=== PATIENT | female | born 1990 | race Caucasian/White ===

== ENCOUNTER 2020-11-08 11:04 | Emergency (ER) | payer BC, SELFPAY ==
[2020-11-08 11:06] VITALS: BP 141/100; PULSE 90; RESP 20; TEMP 36.7; O2SAT 99
--- NOTE | 2020-11-08 11:09 | ECG_ITS ---
Measurements Intervals [place] Rate: 84 P: 54 DE: 142 QRS: 36 QRSD: 89 T: 31 QT: 323 QTc: 382 Interpretive Statements SINUS RHYTHM WITH MARKED SINUS ARRHYTHMIA LOW QRS VOLTAGE IN PRECORDIAL LEADS NONSPECIFIC T-WAVE ABNORMALITY- INFERIOR LEADS BORDERLINE ECG Electronically Signed On 11-08-2020 17:41:49 CDT by Colt Gay D.O.
[2020-11-08 11:22] LABS: Basophils Absolute Auto 0.1 K/mm3 (0.0-0.1); Basophils Percent Auto 0.5 % (0.2-1.2); Eosinophils Absolute Auto 0.2 K/mm3 (0-0.3); Eosinophils Percent Auto 1.4 % (0-4.4); Hematocrit 43.9 % (37.0-47.0); Hemoglobin 14.2 g/dL (12.0-15.0); Immature Granulocyte Absolute 0.05 K/mm3 (0.00-0.031); Immature Granulocyte Percent A 0.5 % (0-0.5); Lymphocytes Absolute Auto 3.04 K/mm3 (0.9-3.2); Lymphocytes Percent Auto 27.5 % (18.3-44.2); Mean Corpuscular HGB Conc 32.3 g/dl (32-36); Mean Corpuscular Hemoglobin 27.4 pg (26-34); Mean Corpuscular Volume 84.6 fl (80-100); Mean Platelet Volume 8.9 fl (7.4-10.4); Monocytes Absolute Auto 0.7 K/mm3 (0.1-0.6); Monocytes Percent Auto 6.2 % (2.6-8.5); Neutrophils Absolute Auto 7.1 K/mm3 (1.3-6.7); Neutrophils Percent Auto 63.9 % (45.5-73.1); Platelet Count Result 403 k/mm3 (150-375); Red Blood Count 5.19 M/mm3 (4.2-5.4); Red Cell Distribution Width 12.9 % (11.5-14.5); White Blood Count 11.1 K/mm3 (4.5-10.0)
[2020-11-08 11:32] LABS: Alanine Aminotransferase 22 U/L (4-35); Albumin Level 4.4 g/dL (3.5-5.1); Alkaline Phosphatase 56 U/L (38-126); Anion Gap 6 mmol/L (8-16); Aspartate Amino Transferase 23 U/L (14-36); Bilirubin,Total 0.2 mg/dL (0.2-1.3); Blood Urea Nitrogen 12 mg/dL (7-17); Calcium 9.7 mg/dL (8.4-10.2); Carbon Dioxide 29 mmol/L (22-30); Chloride 105 mmol/L (98-107); Estimated CRCL calculation 108 ml/min; Estimated Glomerular Filt Rate > 60; Glucose 99 mg/dL (65-105); Sodium 140 mmol/L (137-145)
[2020-11-08 11:33] LABS: Add Urine Microscopic? YES; Appearance Urine Cloudy (Clear); Bacteria Urine 3+ /hpf; Bilirubin Urine Negative (Negative); Blood Urine Negative (Negative); Color Urine Yellow (Yellow); Glucose Urine UA Negative (Negative); Ketones Urine Negative (Negative); Leukocyte Esterase Ur 3+ LEU/UL (Negative); Mucus Urine Rare /lpf; Nitrate Urine Negative (Negative); Protein Urine Negative (Negative); Specific Grav Ur 1.011 (1.001-1.035); Squamous Epithelial Cell Urine Many /hpf (Few); Urobilinogen Urine Negative mg/dL (<2.0)
[2020-11-08 11:52] VITALS: BP 129/99; PULSE 92; RESP 25; O2SAT 99
[2020-11-08 12:01] VITALS: BP 131/98; PULSE 92; RESP 15; O2SAT 95
[2020-11-08 12:30] LABS: Alveolar/Arterial O2 Gradient 19.9 mmHg; Base Excess ABG 0.8 mEq/l (+/-2.0); Device ROOM AIR; Fractional Inspired Oxygen 21 %; HCO3 ABG 24.7 mEq/l (22.0-26.0); Oxygen Saturation ABG 96.8 % (95.0-100.0); Oxyhemoglobin 93.8 % THb (90.0-100.0); PCO2 ABG 37.4 mmHg (35.0-45.0); PO2 FiO2 Ratio Arterial Blood 4.05 %; Site Drawn LEFT BRACHIAL; Total Hemoglobin 14.4 g/dL (12.0-18.0); pH ABG 7.438 (7.350-7.450)
[2020-11-08 12:46] VITALS: BP 125/107; PULSE 93; RESP 21; O2SAT 90
--- NOTE | 2020-11-08 13:01 | ED.GENADULT ---
HPI - General Adult General Chief complaint: Altered Mental Status Stated complaint: sent from urgent care with dizziness Time Seen by Provider: 11/08/20 11:42 Source: patient Mode of arrival: ambulatory Limitations: no limitations History of Present Illness HPI narrative: Patient is a 30 years old white female who presented to the ED with dizziness, in the form of a spinning started within the last 24 hours, associated with nausea. And intermittent poor concentration and thinking. Patient reported had similar symptoms in the past secondary to vertigo but did not last more than few minutes or hours. This 1 is longest 1. Patient denies any fever, chills, vomiting, chest pain, shortness of breath, back pain or abdominal pain. History of anxiety, PTSD, Related Data Home Medications Medication Instructions Recorded Confirmed levothyroxine 50 mcg PO DAILY 11/08/20 11/08/20 Allergies Allergy/AdvReac Type Severity Reaction Status Date / Time ciprofloxacin [From Cipro] Allergy Hives Verified 11/08/20 11:10 Review of Systems Review of Systems: Narrative: CONSTITUTIONAL: Denies fever, chills, or sweats. EYES: Denies visual changes, redness, or discharge. ENT: Denies rhinorrhea, congestion, sore throat, or otalgia. CARDIOVASCULAR: Denies chest pain, palpitations, or edema. RESPIRATORY: Denies cough or dyspnea. GASTROINTESTINAL: Denies abdominal pain, nausea, vomiting, or diarrhea. GENITOURINARY: Denies dysuria or hematuria. SKIN: Denies rash or itching. MUSCULOSKELETAL: Denies back pain, joint pain, or myalgia. NEUROLOGIC: Denies headache, numbness, or weakness. PSYCHIATRIC: Denies anxiety or depression. PMFSH Social History Social History Gender identity (if verbalized by the patient): Female Exam Narrative: Exam Narrative: General appearance: Well-developed, well-nourished Skin: Normal color Head: Normocephalic, nontraumatic Eyes: Clear conjunctiva ENT: Oropharynx normal, ears normal, nose normal, right ear exam showed tube in place Neck: Supple, nontender Chest and respiratory: Airway patent, no respiratory distress, no accessory muscle use Heart: Regular rate/rhythm Abdomen: Soft, nontender, no organomegaly, quiet bowel sounds Vascular: Normal peripheral pulses, normal capillary refill. Musculoskeletal: Normal range of motion, nontender back Neurologic: Alert and oriented ?3, [employer] is normal as tested, no gross motor deficit Course Course Emergency Course: Resolved Reevaluation(s) Reevaluation #1: Patient feeling okay, declined to get CAT scan of the head and is telling me that she well go to her family physician to get it Date: 11/08/20 Time: 13:23 Vital Signs Vital signs: Vital Signs Temperature 36.7 C 11/08/20 11:06 Pulse Rate 90 11/08/20 11:06 Respiratory Rate 20 11/08/20 11:06 Blood Pressure 141/100 H 11/08/20 11:06 Pulse Oximetry 99 11/08/20 11:06 Temperature 36.7 C 11/08/20 11:06 Pulse Rate 92 11/08/20 11:52 Respiratory Rate 25 H 11/08/20 11:52 Blood Pressure 129/99 H 11/08/20 11:52 Pulse Oximetry 99 11/08/20 11:52 Medical Decision Making MDM Narrative Medical decision making narrative: Benign positional vertigo is my concern. Labs, CT head, UA ordered. Further plan to follow Differential Diagnosis Differential Diagnosis: Benign positional vertigo, electrolyte imbalance, urinary tract infection, intracranial abnormality. Vital Signs Vital Signs: Vital Signs Temperature 36.7 C 11/08/20 11:06 Pulse Rate 90 11/08/20 11:06 Respiratory Rate 20 11/08/20 11:06 Blood Pressure 141/100 H 11/08/20 11:06 Pulse Oximetry 99
--- NOTE | 2020-11-08 13:10 | PC.NURSE ---
PT DECLINES CT SCAN. STATES SHE WILL FOLLOW UP WITH PCP FOR FURTHER TESTING. ALSO REFUSING IV. ZOFRAN ORDER CHANGED VORB FROM IV TO PO. PT ALSO GOT OUT OF BED AND TOOK OFF MONITORING EQUIPMENT. CURRENTLY SITTING IN CHAIR.
[2020-11-08] MEDS: ONDANSETRON HCL ODT 4 MG TABLET PO (13:17)
[2020-11-08] MEDS: MECLIZINE HCL 25 MG TABLET PO (13:17)
[2020-11-08] MEDS: NITROFURANTOIN MONOHYD MACROCR 100 MG CAP PO (13:18)
[2020-11-08 13:46] VITALS: BP 121/84; PULSE 89; RESP 17; O2SAT 98
== END 2020-11-08 13:50 | disposition home or self-care (01) ==
PROVIDERS: Emergency Provider Emergency Medicine; PCP Family Medicine
DX: R42 Dizziness and giddiness (principal); N39.0 Urinary tract infection, site not specified; R94.31 Abnormal electrocardiogram [ECG] [EKG]
CPT/HCPCS: 36415; 36600; 80053; 81001; 81025; 82805; 84443; 85025; 87077; 87086; 87088; 93005; 96374; 99284; A9270

== ENCOUNTER 2023-07-14 12:15 | Emergency (ER) | payer OTHER, SELFPAY ==
[2023-07-14 12:23] VITALS: BP 121/86; PULSE 81; RESP 16; TEMP 36.8; O2SAT 97
--- NOTE | 2023-07-14 12:23 | ED.URI ---
HPI - URI/Sore Throat General Chief Complaint: Upper Respiratory Infection Stated Complaint: Cough Source: patient, RN notes reviewed and old records reviewed Mode of arrival: ambulatory Limitations: no limitations History of Present Illness HPI Narrative: 33-year-old female presents to [facility] with complaint of productive cough, congestion this started approximately 2 weeks ago. Patient states nasal discharge and phlegm yellow/green. Patient taking [id number] medications with no relief. Patient denies dizziness, weakness, chest pain, shortness of breath. MD elicited complaint: cough and nasal congestion Onset (ago): week(s) (2) Related Data Allergies Allergy/AdvReac Type Severity Reaction Status Date / Time ciprofloxacin [From Cipro] Allergy Hives Verified 07/14/23 12:21 Review of Systems Constitutional: Constitutional: Reports no additional constitutional complaints, Denies body ache(s), Denies chills, Denies fatigue, Denies fever(s) and Denies headache(s) Eyes: Eyes: Reports no additional eye complaints and Denies blurry vision ENT: Reports system reviewed and no additional complaints, except as documented, Denies vertigo, Denies dizziness, Denies ear discharge, Denies otalgia, Denies facial pain, Denies headache(s), Reports nasal congestion, Reports nasal discharge, Reports sinus pain, Reports sinus pressure and Denies sore throat Cardiovascular: Cardiovascular: Reports no additional cardiovascular complaints, Denies chest pain, Denies chest pain at rest, Denies rapid heart rate and Denies dyspnea Respiratory: Respiratory: Reports no additional respiratory complaints, Reports chest congestion, Reports cough, Denies pain on inspiration, Denies pain with cough and Denies dyspnea Gastrointestinal: Gastrointestinal: Denies abdominal pain, Denies diarrhea, Denies nausea and Denies vomiting Integumentary/Breasts: Skin/Breast: Denies rash Neurologic: Reports system reviewed and no additional complaints, except as documented, Denies vertigo, Denies dizziness and Denies headache(s) Endocrine: Endocrine: Denies fatigue PMFSH Past Medical History Medical History Anxiety Depression Eustachian tube disorder Ganglion cyst of dorsum of left wrist removed Aug 2020 GERD (gastroesophageal reflux disease) Hypothyroid Pelvic floor dysfunction in female PTSD (post-traumatic stress disorder) Seasonal allergies Surgical History Surgical History [place] teeth extracted Family History Family History Father Diabetes mellitus Hypertension Hx of aortic aneurysm PFO with atrial septal aneurysm Cerebrovascular accident Mother Hypothyroid Sibling Depression Anxiety Grandparent Ovarian cancer Grandparent Skin cancer Diabetes mellitus Cerebrovascular accident Other Family hx of alcoholism Social History Social History Smoking packs per day: 0.5 Smoking cigarettes per day: 10.0 Years smoked: 14 Smoking pack-years: 7.00 Smoking status: Current every day smoker Tobacco type: cigarettes Alcohol intake: never Substance use: current Substance use type: marijuana Other substance usage details: smokes marijuana and consumes edibles Lack of Transportation: No Lack of Food: Never True Current Housing: I Have Housing Concerned About Future Housing: No Difficulty Paying Gas/Electric Bills: No Difficulty Paying for Meds: No Currently Unemployed: No Education: Associate Degree Difficulty w/ Childcare or Family Care: No Gender identity (if verbalized by the patient): Female Comments At the time of my signature, I reviewed and agree with the nursing past medical, surgical, social, and family history. There is no relevant family history pert
== END 2023-07-14 12:35 | disposition home or self-care (01) ==
PROVIDERS: Emergency Provider Registered Nurse; PCP Family Medicine
DX: J20.9 Acute bronchitis, unspecified (principal); E03.9 Hypothyroidism, unspecified; F17.210 Nicotine dependence, cigarettes, uncomplicated
CPT/HCPCS: 99213; G0463

== ENCOUNTER 2024-12-19 12:23 | Emergency (ER) | payer BC, SELFPAY ==
[2024-12-19 12:35] VITALS: BP 119/84; PULSE 76; RESP 16; TEMP 37.2; O2SAT 99
--- NOTE | 2024-12-19 12:55 | ED.EAR ---
HPI - Ear Problem General Chief complaint: Ear Stated complaint: EARACHE/COUGH Time Seen by Provider: 12/19/24 12:45 Source: patient and RN notes reviewed Mode of arrival: ambulatory Limitations: no limitations History of Present Illness HPI Narrative: 34-year-old female presents [facility] complaining of right ear pain and cough for 1 week. Patient reported she started with upper respiratory symptoms including cough, congestion, ear pain over the last week. Patient has had most of her symptoms have resolved except she continues to have pain in her right ear and noticed discharge coming from her ear. Patient has a history of frequent ear infections has had ear tubes in the past. Patient says her cough is dry nonproductive in worse when laying flat at night. Patient denies any fevers, body aches, chills, chest pain, shortness of breath, sore throat, dizziness, tinnitus, hearing problems, or any other symptoms. Related Data Allergies Allergy/AdvReac Type Severity Reaction Status Date / Time ciprofloxacin (From Cipro) Allergy Hives Verified 12/19/24 12:37 Review of Systems Review of Systems: CONSTITUTIONAL: Denies fever, chills, body aches, or sweats. EYES: Denies visual changes, redness, or discharge. ENT: Positive for congestion and otalgia. Negative for sore throat, tinnitus, hearing problems and rhinorrhea. CARDIOVASCULAR: Denies chest pain, palpitations, or edema. RESPIRATORY: Positive for cough. Negative for dyspnea. GASTROINTESTINAL: Denies abdominal pain, nausea, vomiting, or diarrhea. GENITOURINARY: Denies dysuria or hematuria. SKIN: Denies rash or itching. MUSCULOSKELETAL: Denies back pain, joint pain, or myalgia. NEUROLOGIC: Denies headache, numbness, or weakness. PSYCHIATRIC: Denies anxiety or depression. All other systems reviewed are negative, except as documented in HPI. [facility], [facility] Past Medical History Medical History Eustachian tube disorder Pelvic floor dysfunction in female Ganglion cyst of dorsum of left wrist removed Aug 2020 PTSD (post-traumatic stress disorder) Hypothyroid GERD (gastroesophageal reflux disease) Depression Anxiety Seasonal allergies Surgical History Surgical History [place] teeth extracted Family History Family History Father Diabetes mellitus Hypertension Hx of aortic aneurysm PFO with atrial septal aneurysm Cerebrovascular accident Mother Hypothyroid Sibling Depression Anxiety Grandparent Ovarian cancer Grandparent Skin cancer Diabetes mellitus Cerebrovascular accident Other Family hx of alcoholism Social History Social History Smoking packs per day: 0.5 Smoking cigarettes per day: 10.0 Years smoked: 14 Smoking pack-years: 7.00 Smoking status: Current every day smoker Tobacco type: cigarettes Alcohol intake: never Substance use: current Substance use type: marijuana Other substance usage details: smokes marijuana and consumes edibles Do You Feel Safe in your Home?: Yes Lack of Transportation: No Lack of Food: Never True Current Housing: I Have Housing Concerned About Future Housing: No Difficulty Paying Gas/Electric Bills: No Difficulty Paying for Meds: No Currently Unemployed: No Education: Associate Degree Difficulty w/ Childcare or Family Care: No Living arrangements: with family Additional living arrangements comments: Occupation/Education: occupation Additional occupation/education comments: [employer] Gender identity (if verbalized by the patient): Female Sexual Orientation (if Verbalized by the Patient): Straight or Heterosexual Comments At the time of my signature, I reviewed and agree with the nursing past medical, surgical, social, and family history. There is no relevant family history pertinent to the patient complaint. Exam Narrative: GENERAL: This is a well-nourished, well-developed adult, in no apparent distress. They are non ill-appearing, nontoxic appearing. HEAD: normocephalic, atraumatic. EYES: Sclera clear/white. Vision is grossly intact. Conjunctiva normal bilaterally. Extraocular movements intact. EARS: External ears normal, auditory canals clear and without drainage, left TM without erythema or perforation. Right TM is erythematous and bulging with suppuration. Right TM is intact. Hearing grossly intact. NOSE: External nose normal with no obvious nasal discharge, nasal turbinates erythematous, no rhinorrhea or exit a. THROAT: Mucous membranes moist, posterior pharynx without redness or swelling, no exudate. Uvula is midline. Postnasal drip present. NECK: Neck supple, non-tender without lymphadenopathy, masses or thyromegaly. CARDIOVASCULAR: Regular rate and rhythm without murmurs, gallops, or rubs. RESPIRATORY: Clear to auscultation. Breath sounds equal bilaterally. No wheezes, rales, or rhonchi. Respiratory rate normal, respiratory effort nonlabored, no respiratory distress SKIN: warm, Dry, intact with no suspicious lesions or rash, good texture and turgor. NEURO: awake, alert, and oriented to person, place and time. There were no obvious focal neurologic abnormalities. EXTREMITIES: No joint tenderness, effusion, or edema noted. BACK: Nontender without deformity. Course Course Emergency Course: Portions of this record may have been created with voice recognition software Level of Care: Express Care Visit Vital Signs Vital signs: Vital Signs Temperature 98.9 F 12/19/24 12:35 Pulse Rate 76 12/19/24 12:35 Respiratory Rate 16 12/19/24 12:35 Blood Pressure 119/84 12/19/24 12:35 Pulse Oximetry 99 12/19/24 12:35 Temperature 98.9 F 12/19/24 12:35 Pulse Rate 76 12/19/24 12:35 Respiratory Rate 16 12/19/24 12:35 Blood Pressure 119/84 12/19/24 12:35 Pulse Oximetry 99 12/19/24 12:35 Medical Decision Making MDM Narrative Medical decision making narrative: Patient has a right-sided otitis media. Will treat with Augmentin given history of frequent ear infections. Will prescribe albuterol as needed for cough or wheezing. Discussed physical exam findings. Advised supportive measures and signs/symptoms to go to the ER. Pt is appropriate for outpt treatment and f/u. Differential Diagnosis Differential Diagnosis: Upper respiratory infection, viral infection, pharyngitis Vital Signs Vital Signs: Vital Signs Temperature 98.9 F 12/19/24 12:35 Pulse Rate 76 12/19/24 12:35 Respiratory Rate 16 12/19/24 12:35 Blood Pressure 119/84 12/19/24 12:35 Pulse Oximetry 99 12/19/24 12:35 Temperature 98.9 F 12/19/24 12:35 Pulse Rate 76 12/19/24 12:35 Respiratory Rate 16 12/19/24 12:35 Blood Pressure 119/84 12/19/24 12:35 Pulse Oximetry 99 12/19/24 12:35 Discharge Plan Discharge Clinical Impression: Post-viral cough syndrome Otitis media Qualifiers: Otitis media type: suppurative Chronicity: acute Laterality: right Recurrence: non-recurrent Spontaneous tympanic membrane rupture: without spontaneous rupture Qualified Code(s): H66.001 - Acute suppurative otitis media without spontaneous rupture of ear drum, right ear Patient Disposition: Home Condition: Stable Instructions: Antibiotic Form, Ear Infection (ED), Acute Cough (ED) Additional Instructions: Take antibiotics as directed. Recommend antihistamine such as Benadryl, Zyrtec or Cynthia for sinus congestion You may do saline sinus rinses 3 times a day with lukewarm distilled water Flonase nasal spray, 2 spray in each nostril once daily until symptoms improve Use albuterol inhaler as needed for cough or wheezing. Symptomatic treatment includes: rest, fluids, and increase humidity of the air at home. Tylenol 1000mg every 8 hours as needed to reduce fever, pain Please schedule a follow-up visit with your personal physician for further evaluation and treatment within 3-5days. If your symptoms worsen, you developed difficulty breathing, chest pains, or any other concerns please go to the ER immediately. Patient Language: Estonian Prescriptions: New amoxicillin-pot clavulanate 875-125 mg tablet 1 tablet PO Q12H 7 Days Qty: 14 0RF albuterol sulfate [Ventolin HFA] 90 mcg/actuation HFA aerosol inhaler 2 puff inhalation QID PRN (Reason: shortness of breath or wheezing) Qty: 8.5 0RF No Action citalopram 20 mg tablet 20 mg PO DAILY Qty: 90 4RF levothyroxine 50 mcg tablet 50 mcg PO DAILY Qty: 90 4RF Follow-up/Referrals: Marge Dacosta MD [Primary Care Provider] - Time of Disposition: 12:51
== END 2024-12-19 12:57 | disposition home or self-care (01) ==
PROVIDERS: PCP Family Medicine
DX: R05.8 Other specified cough (principal); H66.001 Acute suppurative otitis media without spontaneous rupture of ear drum, right ear; F17.210 Nicotine dependence, cigarettes, uncomplicated; F12.90 Cannabis use, unspecified, uncomplicated; E03.9 Hypothyroidism, unspecified; K21.9 Gastro-esophageal reflux disease without esophagitis
CPT/HCPCS: 99213; G0463

== ENCOUNTER 2025-04-25 09:26 | Outpatient (CLI) | payer BC, SELFPAY ==
--- NOTE | ~2025-04-25 | US_ITS ---
EXAMINATION: US pelvic complete w TV, 04/25/2025 9:28 CDT HISTORY: R10.2 - Pelvic and perineal pain Comparison: None Technique: Zuniga-scale and color Doppler images were obtained. Findings: Uterus: Uterus anteverted 8.7 x 4.1 x 5.3 cm, there are intramural fibroids identified the largest in the posterior left uterine body 1.2 x 2 cm. . Right Ovary:Right ovary 1.7 x 2.9 x 1.9 cm, no adnexal mass or abnormal flow. Left Ovary: Left ovary 3.1 x 2.1 x 1.5 cm, no adnexal mass, normal flow endometrium measures 1.4 cm. Free Fluid: None Impression: Uterine fibroids detailed above Reviewed, dictated and finalized at location P. Impression: Uterine fibroids detailed above
== END 2025-04-25 09:27 | disposition home or self-care (01) ==
LOC: GOSHIMG 09:27
PROVIDERS: PCP Family Medicine Adolescent Medicine; Visit Provider Obstetrics & Gynecology
DX: D25.9 Leiomyoma of uterus, unspecified (principal); R10.22 Pelvic and perineal pain left side
CPT/HCPCS: 76830; 76856